=== PATIENT | male | born 1960 | race African-American/Black ===

== ENCOUNTER 2021-12-04 11:40 | Emergency (ER) | payer OTHER ==
[~2021-12-04] VITALS: Ht 188 cm; Wt 107.0 kg
[2021-12-04 13:11] LABS: Eosinophils # (auto) 0.1 10 ^3/uL (0-0.8); Eosinophils % (auto) 0.4 % (0.0-7.0); Lymphocytes # (auto) 1.3 10 ^3/uL (0.4-5.4); Mean Corpuscular Hemoglobin 25.7 pg (28.0-32.0); Monocytes # (auto) 1.3 10 ^3/uL (0-1.3)
[2021-12-04 13:13] LABS: Basophils # (auto) 0.1 10 ^3/uL (0-0.2); Basophils % (auto) 0.7 % (0.0-2.0); Hematocrit 47.2 % (41.0-53.0); Hemoglobin 15.8 g/dL (13.5-17.5); Lymphocytes % (auto) 6.6 % (10.0-50.0); Mean Corpuscular Hgb Conc. 33.4 g/dL (32.0-36.0); Monocytes % (auto) 6.6 % (0.0-12.0); Neutrophils # (auto) 17.1 10 ^3/uL (1.6-8.6); Neutrophils % (auto) 85.7 % (37.0-80.0); Nucleated Red Blood Cells % 0.1 %; Red Blood Cells 6.14 10^6/uL (4.5-5.90)
[2021-12-04 13:36] LABS: Albumin 3.4 g/dL (3.4-5.0); Calcium 9.7 mg/dL (8.5-10.1); Potassium 3.4 mmol/L (3.5-5.1)
[2021-12-04 13:37] LABS: BUN/Creatinine Ratio 9.6
[2021-12-04 13:40] LABS: Bilirubin, Total 1.6 mg/dL (0.2-1.0); Total Protein 8.3 g/dL (6.4-8.2)
[2021-12-04 17:44] LABS: Urine Bacteria NONE SEEN /hpf (None Seen); Urine Blood Negative /uL (Negative); Urine Hyaline Cast FEW /lpf (0 - 2); Urine Mucus FEW (None Seen); Urine Specific Gravity 1.029 (1.001-1.035); Urine WBC 9 /hpf (0 - 3)
[2021-12-04] MEDS ORDERED: METR500T PO (17:54)
[2021-12-04] MEDS ORDERED: PERCOT PO (17:54)
[2021-12-04] MEDS ORDERED: CIPR-173 PO (17:54)
[2021-12-04] MEDS ORDERED: ONDA-144 PO (17:54)
[2021-12-04 18:10] VITALS: BP 138/84
== END 2021-12-04 19:04 | disposition home or self-care (01) ==
LOC: ER 11:40
DX: K52.9 Noninfective gastroenteritis and colitis, unspecified (principal)
CPT/HCPCS: 36415; 74176; 80053; 81001; 83690; 84484; 85025; 93005